=== PATIENT | female | born 1955 | race Caucasian/White ===

== ENCOUNTER 2020-07-17 14:45 | Outpatient (REF) | payer BC, SELFPAY ==
--- NOTE | 2020-07-17 14:48 | XR_ITS ---
EXAMINATION: XR KNEE STANDING, BILATERAL XR KNEE, BILATERAL CLINICAL INFORMATION: Pain bilateral knees. COMPARISON: None TECHNIQUE: Bilateral AP knees standing. Two views each knee. FINDINGS: BILATERAL AP KNEE: There is moderate loss of medial compartment joint space both knees with periarticular spurring in the medial and lateral compartments. No bony erosive changes. The soft tissues are normal. No abnormal joint effusion. LEFT KNEE: There is loss of patellofemoral compartment joint space with moderate periarticular spurring. No loose body seen. There is no visible fracture or dislocation. No bony abnormality. RIGHT KNEE: There is mild loss of patellofemoral compartment joint space with moderate periarticular spurring. There is no joint effusion or loose body seen. There are no bony erosive changes. 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 No loose bodies or bony erosive changes. No joint effusion seen in either knees.
--- NOTE | 2020-07-17 14:48 | XR_ITS ---
EXAMINATION: XR KNEE STANDING, BILATERAL XR KNEE, BILATERAL CLINICAL INFORMATION: Pain bilateral knees. COMPARISON: None TECHNIQUE: Bilateral AP knees standing. Two views each knee. FINDINGS: BILATERAL AP KNEE: There is moderate loss of medial compartment joint space both knees with periarticular spurring in the medial and lateral compartments. No bony erosive changes. The soft tissues are normal. No abnormal joint effusion. LEFT KNEE: There is loss of patellofemoral compartment joint space with moderate periarticular spurring. No loose body seen. There is no visible fracture or dislocation. No bony abnormality. RIGHT KNEE: There is mild loss of patellofemoral compartment joint space with moderate periarticular spurring. There is no joint effusion or loose body seen. There are no bony erosive changes. 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 No loose bodies or bony erosive changes. No joint effusion seen in either knees.
--- NOTE | 2020-07-17 14:48 | XR_ITS ---
EXAMINATION: XR KNEE STANDING, BILATERAL XR KNEE, BILATERAL CLINICAL INFORMATION: Pain bilateral knees. COMPARISON: None TECHNIQUE: Bilateral AP knees standing. Two views each knee. FINDINGS: BILATERAL AP KNEE: There is moderate loss of medial compartment joint space both knees with periarticular spurring in the medial and lateral compartments. No bony erosive changes. The soft tissues are normal. No abnormal joint effusion. LEFT KNEE: There is loss of patellofemoral compartment joint space with moderate periarticular spurring. No loose body seen. There is no visible fracture or dislocation. No bony abnormality. RIGHT KNEE: There is mild loss of patellofemoral compartment joint space with moderate periarticular spurring. There is no joint effusion or loose body seen. There are no bony erosive changes. 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 No loose bodies or bony erosive changes. No joint effusion seen in either knees.
== END 2020-07-17 14:46 | disposition home or self-care (01) ==
LOC: HO.HOSX 14:45
PROVIDERS: PCP Family Medicine; Visit Provider Orthopaedic Surgery
DX: M25.561 Pain in right knee (principal); M25.562 Pain in left knee
CPT/HCPCS: 20610; 73560; 73565; J1040